=== PATIENT | female | born 1955 | race Caucasian/White ===

== ENCOUNTER 2017-07-15 14:45 | Emergency (ER) | payer OTHER ==
[~2017-07-15] VITALS: Ht 149.9 cm; Wt 59.0 kg
[~2017-07-15 14:45] MED LIST: CHOL400T PO; LISI10TA11 PO
[2017-07-15 14:53] VITALS: BP 131/77
--- NOTE | 2017-07-15 20:07 | NUR ---
PATIENT LEFT WITHOUT BEING SEEN BY DR. COLLINS. NO FURTHER CARE PROVIDED FOR PATIENT.
== END 2017-07-15 20:07 | disposition left against medical advice (07) ==
LOC: MED 14:45
DX: R05 Cough (principal); Z53.21 Procedure and treatment not carried out due to patient leaving prior to being seen by health care provider

== ENCOUNTER 2017-07-23 19:36 | Emergency (ER) | payer OTHER ==
[~2017-07-23] VITALS: Ht 154.9 cm; Wt 59.0 kg
[2017-07-23 19:46] VITALS: BP 147/80
--- NOTE | 2017-07-23 19:57 | NUR ---
TO LOBBY, A/W JANICE BORGES,FRANCIA ERMD NOTED
--- NOTE | 2017-07-23 21:50 | NUR ---
Patient being evaluated by physician at TRIAGE ROOM
--- NOTE | 2017-07-23 21:55 | NUR ---
RESULT BACK AND NOTED BY ERMD AND FOR D/C
[2017-07-23 22:13] VITALS: BP 132/78
--- NOTE | 2017-07-23 22:13 | NUR ---
Patient discharged with v/s stable. Written and verbal after care instructions given and explained. Patient alert, oriented and verbalized understanding of instructions. Ambulatory with steady gait. All questions addressed prior to discharge. ID band removed. Patient advised to follow up with PMD. Rx of TESSALON PERLES 200MG, ROBITUSSIN 100MG/5ML given. Patient educated on indication of medication including possible reaction and side effects. Opportunity to ask questions provided and answered.
== END 2017-07-23 22:13 | disposition home or self-care (01) ==
LOC: MED 19:36
DX: R04.2 Hemoptysis (principal); I10 Essential (primary) hypertension; Z79.899 Other long term (current) drug therapy
CPT/HCPCS: 71046; 99284

== ENCOUNTER 2018-12-30 08:05 | Inpatient (IN) | payer OTHER ==
[~2018-12-30] VITALS: Ht 149.9 cm; Wt 56.7 kg
[2018-12-30 08:10] VITALS: BP 137/93
--- NOTE | 2018-12-30 08:17 | NUR ---
PT AMBULATED TO ER BED 2
--- NOTE | 2018-12-30 08:28 | NUR ---
DR. LLOYD BEDSIDE EVALUATING PT
--- NOTE | 2018-12-30 08:30 | NUR ---
DR. LLOYD AT BEDSIDE EVALUATING PT.
[2018-12-30] MEDS ORDERED: ASPIRIN 325 MG TAB PO ONE (08:40)
[2018-12-30] MEDS ORDERED: LORazepam 0.5 MG TAB PO ONE (08:40)
[2018-12-30 08:54] LABS: BASOPHILS % (AUTO) 0.6 % (0.0-2.0); EOSINOPHILS # (AUTO) 0.1 K/uL (0-0.4); HEMATOCRIT 42.4 % (36-48); HEMOGLOBIN 14.1 g/dL (12.0-16.0); LYMPHOCYTES # (AUTO) 1.5 K/uL (2.5-16.5); LYMPHOCYTES % (AUTO) 32.5 % (20.5-51.1); MEAN CORPUSCULAR HEMOGLOBIN 29 pg (27-31); MEAN CORPUSCULAR HGB CONC 33 g/dL (33-37); MEAN CORPUSCULAR VOLUME 87.2 fL (80-94); MONOCYTES # (AUTO) 0.3 K/uL (0.8-1.0); MONOCYTES % (AUTO) 6.7 % (1.7-9.3); NEUTROPHILS # (AUTO) 2.7 K/uL (1.8-7.7); NEUTROPHILS % (AUTO) 58.2 % (42.2-75.2); PLATELET COUNT (AUTO) 286 K/uL (140-450); RED BLOOD CELL COUNT(AUTO) 4.86 MIL/uL (4.20-5.40); RED CELL DISTRIBUTION WIDTH 12.6 % (11.6-13.7); WHITE BLOOD COUNT (AUTO) 4.6 K/uL (4.8-10.8)
--- NOTE | 2018-12-30 09:01 | NUR ---
C/O SHARP NON RADIATING EPIGASTRIC PAIN 03/18 X1 WEEK, ACCOMPANIED BY FEELING SOB X3 DAYS. DENIES N/V/D/FEVER, CHEST PAIN. LBM 12/29/18, NORMAL PER PT. ABDOMEN SOFT/FLAT/TENDER TO PALPATION ON EPIGASTRIC AREA. BOWEL SOUNDS ACTIVE X4. LUNG SOUNDS CBTA, BREATHING UNLABORED, SPO2 98% RA, NO ACCESSORY MUSCLE USE NOTED. HR EVEN AND REGULAR. SKIN WARM/DRY AND NFE. BED IN LOW POSITION, PT PLACED ON ELECTRICIAN LOCOMOTIVE, PT PLACED IN GOWN.
[2018-12-30 09:04] LABS: CARBON DIOXIDE 28.2 mmol/L (21-32); CREATININE 0.8 mg/dL (0.6-1.3); POTASSIUM 4.2 mmol/L (3.5-5.1)
[2018-12-30 09:09] LABS: ALBUMIN 3.8 g/dL (3.4-5.0); TOTAL BILIRUBIN 0.5 mg/dL (0.0-1.0)
--- NOTE | 2018-12-30 09:15 | NUR ---
PT AMBULATED TO RESTROOM WITH EVEN AND STEADY GAIT
--- NOTE | 2018-12-30 09:25 | NUR ---
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
[2018-12-30] MEDS ORDERED: OMEP-113 PO (10:26)
[2018-12-30] MEDS ORDERED: AMLO2.5T PO (10:26)
[2018-12-30] MEDS ORDERED: NITROGLYCERIN 0.4 MG TAB SL PRN (11:00)
[2018-12-30] MEDS ORDERED: MORPHINE SULFATE 2 MG/ML SYR IV PRN (11:00)
[2018-12-30] MEDS ORDERED: PROMETHAZINE 25 MG/ML VIAL IVP PRN (11:00)
[2018-12-30] MEDS ORDERED: ZOLPIDEM 5 MG TAB PO PRN (11:00)
[2018-12-30] MEDS ORDERED: ACETAMINOPHEN 325 MG TAB PO PRN (11:00)
[2018-12-30] MEDS ORDERED: MORPHINE SULFATE 2 MG/ML SYR IVP PRN (11:00)
[2018-12-30] MEDS ORDERED: LORazepam 1 MG TAB PO PRN (11:00)
--- NOTE | 2018-12-30 11:10 | NUR ---
RECEIVED REPORT FROM ED NURSE. PT AMBULATED FROM [facility] TO [facility] BED WITH STEADY GAIT, ACCOMPANIED BY SON. PT IS WOLOF SPEAKING. PT AAOX4, LYING IN BED. RESPIRATIONS EVEN AND UNLABORED ON 3L O2 VIA N/C. NO C/O PAIN AT THIS TIME. STOMACH IS SOFT, FLAT WITH ACTIVE BOWEL SOUNDS, LBM REPORTED 12/29. IV ACCESS ON RT AC 20G ON SALINE LOCK. IV DRESSING CLEAN, DRY AND INTACT. SKIN COLOR IS APPROPRIATE TO ETHNICITY, WARM TO TOUCH, SKIN IS INTACT. NO EDEMA NOTED AT THIS TIME. REVIEWED AND EXPLAIN PLAN OF CARE WITH PT. PT VERBALIZED UNDERSTANDING. SAFETY MEASURES IN PLACE, CALL LIGHT WITHIN REACH. WILL CONTINUE TO MONITOR.
--- NOTE | 2018-12-30 11:10 | NUR ---
Patient will be admitted to care of DR. CASTRO. Admited to TELEMETRY. Will go to room 110B. Belongings list completed. Report to GUSTAVO SPICER.
[2018-12-30 11:43] LABS: AMYLASE 47 U/L (25-115); LIPASE 176 U/L (73-393)
[2018-12-30 12:00] VITALS: BP 117/69
[2018-12-30 12:09] LABS: PROTHROMBIN TIME 9.9 secs (10.8-13.4)
[2018-12-30] MEDS ORDERED: SODIUM CHLORIDE FLUSH 10 ML SYR IVF SCH (13:00)
--- NOTE | 2018-12-30 13:00 | NUR ---
PT SITTING UP IN BED EATING LUNCH. NO C/O PAIN AND NO SIGNS OF DISTRESS. WILL CONTINUE TO MONITOR.
[2018-12-30 14:40] LABS: APPEARANCE,URINE CLEAR (CLEAR); BILIRUBIN,URINE NEGATIVE (NEGATIVE); BLOOD, URINE NEGATIVE (NEGATIVE); COLOR,URINE YELLOW (YELLOW); LEUKOCYTE ESTERASE ,URINE 1+ (NEGATIVE); NITRITE, URINE NEGATIVE (NEGATIVE); UGLUCOSE NEGATIVE (NEGATIVE)
[2018-12-30 14:46] LABS: BARBITURATE, URINE NEG. ng/ml (NEG <=200); BENZODIAZEPINE, URINE NEG. ng/mL (NEG <=200); CANNABINOID, URINE NEG. ng/mL (NEG <=50); COCAINE, URINE NEG. ng/mL (NEG <=300); OPIATE, URINE NEG. ng/mL (NEG <=2000); PHENCYCLIDINE SCREEN,URINE NEG. ng/mL (NEG <=25)
[2018-12-30 14:56] LABS: RBC,URINE 0-5 /HPF (0-5)
--- NOTE | 2018-12-30 15:00 | NUR ---
Pt transferred from room 110B to 111A. Son at bedside. All belongings transferred to new room with pt.
[2018-12-30 16:00] VITALS: BP 114/58
--- NOTE | 2018-12-30 16:39 | NUR ---
PT C/O EPIGASTRIC PAIN, NAUSEA AND VOMITING. PT REQUESTED PHENERGAN, GIVEN MEDICATION PER ORDER. WILL REASSESS WITHIN 1 HOUR.
--- NOTE | 2018-12-30 17:12 | NUR ---
RECEIVED CALL FROM PHARMACY. PER PHARMACY, PT TAKES AMLODIPINE AT HOME. WILL NOTIFY PHYSICIAN.
--- NOTE | 2018-12-30 17:30 | NUR ---
PT HAS NO C/O N/V. NO SIGNS OF DISTRESS AT THIS TIME.
--- NOTE | 2018-12-30 18:00 | NUR ---
CALLED DR. CASTRO'S OFFICE TO NOTIFY PHYSICIAN REGARDING PT'S HOME MEDICATION AMLODIPINE. PER SRINIVASAN, SHE WILL HAVE DR. CASTRO CALL ME BACK.
--- NOTE | 2018-12-30 18:35 | NUR ---
Right AC IV discontinued at this time, IV cannula intact.
[2018-12-30] MEDS ORDERED: PANT40EC PO (18:42)
--- NOTE | 2018-12-30 18:55 | NUR ---
Written & verbal discharge instructions provided to pt. Pt & daughter verbalized understanding & agree with discharge plans. Pt discharged to home at this time via private transportation. Pt amb off unit with steady gait, no distress, no c/o discomfort. All belongings with pt upon departure.
[2018-12-30] MEDS ORDERED: PANTOPRAZOLE 40 MG TABEC PO SCH (21:00)
== END 2018-12-30 18:55 | disposition home or self-care (01) | DRG 243 ==
LOC: MED 08:05 → MTU 10:34
PROVIDERS: ADMIT Internal Medicine Pulmonary Disease; ATTEND Internal Medicine Pulmonary Disease
DX: K21.9 Gastro-esophageal reflux disease without esophagitis (principal); I10 Essential (primary) hypertension; Z90.49 Acquired absence of other specified parts of digestive tract
CPT/HCPCS: 36415; 71045; 80053; 80305; 81001; 82150; 82550; 82553; 83690; 84484; 85025; 85610; 85730; 87081; 87086; 93005; 99285; J2270; J2550; Q0092

== ENCOUNTER 2019-03-15 12:32 | Emergency (ER) | payer OTHER ==
[~2019-03-15] VITALS: Ht 152.4 cm; Wt 54.9 kg
[~2019-03-15 12:32] MED LIST changes: +AMLO2.5T PO; -LISI10TA11 PO; +PANT40EC PO
[2019-03-15 12:40] VITALS: BP 134/82
[2019-03-15] MEDS ORDERED: DICYCLOMINE HCL LIQUID 20 MG, ALUMINUM HYD/MAG/SIMETHICONE 30 ML, LIDOCAINE VISCOUS 2% ... PO ONE ×3 (12:55)
[2019-03-15] MEDS ORDERED: KETOROLAC 30 MG/ML VIAL IM ONE (13:20)
[2019-03-15 13:38] VITALS: BP 117/59
== END 2019-03-15 13:38 | disposition home or self-care (01) ==
LOC: MED 12:32
DX: R10.13 Epigastric pain (principal); K21.9 Gastro-esophageal reflux disease without esophagitis; I10 Essential (primary) hypertension; Z90.49 Acquired absence of other specified parts of digestive tract; Z79.899 Other long term (current) drug therapy
CPT/HCPCS: 96372; 99283; J1885